=== PATIENT | male | born 1990 | race Caucasian/White ===

== ENCOUNTER 2022-04-09 13:55 | Emergency (ER) | payer OTHER ==
[~2022-04-09] VITALS: Ht 167.6 cm; Wt 79.4 kg
[2022-04-09 14:18] VITALS: BP 127/82
[2022-04-09] MEDS ORDERED: IBUPROFEN 600 MG TAB PO ONE (14:40)
[2022-04-09] MEDS ORDERED: IBUPROFEN 600 MG TAB ONE (17:07)
--- NOTE | 2022-04-09 17:15 | NUR ---
FLU, RHYS AND STREP SWABS COLLECTED AND WALKED TO LAB
--- NOTE | 2022-04-09 17:18 | NUR ---
31/M C/O SORE THROAT AND FATIGUE X4 DAYS. REPORTS RIGHT EAR PAIN AND HEADACHE TODAY, REPORTS TAKING ABX AT HOME WITH NO RELIEF.
[2022-04-09] MEDS ORDERED: IBUP-2213 PO (18:03)
[2022-04-09 18:08] VITALS: BP 106/50
--- NOTE | 2022-04-09 18:08 | NUR ---
Patient discharged with v/s stable. Written and verbal after care instructions ABOUT VIRAL ILLNESS given and explained. Patient alert, oriented and verbalized understanding of instructions. Ambulatory with steady gait. All questions addressed prior to discharge. ID band removed. Patient advised to follow up with PMD. Rx of IBUPROFEN given. Patient educated on indication of medication including possible reaction and side effects. Opportunity to ask questions provided and answered.
== END 2022-04-09 18:08 | disposition home or self-care (01) ==
LOC: MED 13:55
DX: J02.9 Acute pharyngitis, unspecified (principal); Z20.822 Contact with and (suspected) exposure to COVID-19; Z79.899 Other long term (current) drug therapy
CPT/HCPCS: 87081; 99283

== ENCOUNTER 2022-04-24 16:59 | Emergency (ER) | payer OTHER ==
[~2022-04-24] VITALS: Ht 170.2 cm; Wt 77.1 kg
[~2022-04-24 16:59] MED LIST: IBUP-2213 PO
[2022-04-24 17:01] VITALS: BP 127/83
--- NOTE | 2022-04-24 17:08 | NUR ---
Brisa parikh in [facility] - 04/24/22 at 1708 by [email or web address] PT AMB TO BED 9
--- NOTE | 2022-04-24 17:10 | NUR ---
BIB SELF C/O 07/20 SORE THROAT, COUGH X TODAY. PMH: DENIES
[2022-04-24] MEDS ORDERED: KETOROLAC 30 MG/ML VIAL IM ONE (17:25)
[2022-04-24] MEDS ORDERED: BENZ-300 PO (17:31)
[2022-04-24] MEDS ORDERED: PROM118S5 PO (17:31)
[2022-04-24] MEDS ORDERED: IBUP-2213 PO (17:31)
--- NOTE | 2022-04-24 17:41 | NUR ---
COVID RHYS, FLU SWABS DONE.
[2022-04-24 17:55] VITALS: BP 117/67
--- NOTE | 2022-04-24 17:55 | NUR ---
Patient discharged with v/s stable. Written and verbal after care instructions given and explained. Patient alert, oriented and verbalized understanding of instructions. Ambulatory with steady gait. All questions addressed prior to discharge. ID band removed. Patient advised to follow up with PMD. Rx of IBUPROFEN, PROMETHAZINE, CEPACOL SORE THROAT LOZENGE given. Patient educated on indication of medication including possible reaction and side effects. Opportunity to ask questions provided and answered.
== END 2022-04-24 17:55 | disposition home or self-care (01) ==
LOC: MED 16:59
DX: B34.9 Viral infection, unspecified (principal); Z20.822 Contact with and (suspected) exposure to COVID-19; R03.0 Elevated blood-pressure reading, without diagnosis of hypertension; F12.90 Cannabis use, unspecified, uncomplicated; Z79.899 Other long term (current) drug therapy; Z79.1 Long term (current) use of non-steroidal anti-inflammatories (NSAID)
CPT/HCPCS: 87426; 87804; 96372; 99283; J1885

== ENCOUNTER 2022-04-27 15:50 | Emergency (ER) | payer OTHER ==
[~2022-04-27] VITALS: Ht 165.1 cm; Wt 74.8 kg
[~2022-04-27 15:50] MED LIST changes: +BENZ-300 PO; +PROM118S5 PO
[2022-04-27 15:58] VITALS: BP 122/71
--- NOTE | 2022-04-27 16:02 | NUR ---
PT AMBULATED TO ER BED 3 WITH A STEADY GAIT.
--- NOTE | 2022-04-27 16:18 | NUR ---
31 Y/O MALE C/O COUGH, CONGESTION, SORE THROAT, AND BODY ACHES X3 DAYS. SPO2 IN TRIAGE 93% ON RA, PT PLACED ON SUPERVISOR BIT AND SHANK DEPARTMENT FOR REEVALUATION. DENIES FEVER/CHILLS. DENIES N/V/D. DENIES PMH NKA
[2022-04-27] MEDS ORDERED: ONDANSETRON 4 MG/2 ML VIAL IVP ONE (16:40)
[2022-04-27] MEDS ORDERED: NACL 0.9% 1,000 ML IV ONE (16:40)
[2022-04-27] MEDS ORDERED: KETOROLAC 30 MG/ML VIAL IM ONE (16:40)
[2022-04-27] MEDS ORDERED: KETOROLAC 15 MG/ML VIAL ONE (16:46)
--- NOTE | 2022-04-27 18:07 | NUR ---
PT TAKEN TO CT VIA W/C.
[2022-04-27 18:14] LABS: BASOPHILS % (AUTO) 0.2 % (0.0-2.0); HEMATOCRIT 40.4 % (36-52); HEMOGLOBIN 13.7 g/dL (12.0-18.0); LYMPHOCYTES # (AUTO) 1.3 K/uL (2.0-11.5); LYMPHOCYTES % (AUTO) 14.2 % (20.5-51.1); MEAN CORPUSCULAR HEMOGLOBIN 30 pg (27-31); MEAN CORPUSCULAR HGB CONC 34 g/dL (33-37); MEAN CORPUSCULAR VOLUME 89.3 fL (80-94); MONOCYTES # (AUTO) 0.8 K/uL (0.8-1.0); MONOCYTES % (AUTO) 8.1 % (1.7-9.3); NEUTROPHILS # (AUTO) 7.3 K/uL (1.8-7.7); NEUTROPHILS % (AUTO) 77.5 % (42.2-75.2); PLATELET COUNT (AUTO) 226 K/uL (140-450); RED BLOOD CELL COUNT(AUTO) 4.52 MIL/uL (4.20-6.10); RED CELL DISTRIBUTION WIDTH 13.6 % (11.6-13.7); WHITE BLOOD COUNT (AUTO) 9.4 K/uL (4.8-10.8)
--- NOTE | 2022-04-27 18:17 | NUR ---
PT TAKEN TO ER BED 3 VIA W/C.
[2022-04-27 18:38] LABS: ALBUMIN 3.2 g/dL (3.4-5.0); ANION GAP 9.6 (8-16); CARBON DIOXIDE 25.2 mmol/L (21-32); CREATININE 1.2 mg/dL (0.6-1.3); POTASSIUM 3.8 mmol/L (3.5-5.1); TOTAL BILIRUBIN 0.5 mg/dL (0.0-1.0)
--- NOTE | 2022-04-27 18:52 | NUR ---
PT IN BED, VISIBLE EQUAL RISE AND FALL OF CHEST, VSS, WILL CONTINUE TO MONITOR. PT STATES 05/19 PAIN HARI CROFT NOTIFIED.
[2022-04-27] MEDS ORDERED: DICYCLOMINE HCL LIQUID 20 MG, ALUMINUM HYD/MAG/SIMETHICONE 30 ML, LIDOCAINE VISCOUS 2% ... PO ONE ×3 (18:55)
--- NOTE | 2022-04-27 19:14 | NUR ---
GAVE REPORT TO ROSAS RAMIREZ. TRANSFER OF CARE AT THIS TIME.
[2022-04-27] MEDS ORDERED: BENZ-300 PO ×2 (19:25→23:07)
[2022-04-27] MEDS ORDERED: AMOX-1230 PO ×2 (19:25→23:07)
[2022-04-27] MEDS ORDERED: ONDA-188 SL ×2 (19:25→23:07)
[2022-04-27] MEDS ORDERED: IBUP-2213 PO ×2 (19:25→23:07)
[2022-04-27] MEDS ORDERED: ALUMINUM HYD/MAG/SIMETHICONE 30 ML UDC ONE (19:39)
[2022-04-27] MEDS ORDERED: DICYCLOMINE HCL LIQUID 10 MG/5 ML UDC ONE ×3 (19:39→19:56)
[2022-04-27 20:27] VITALS: BP 109/61
== END 2022-04-27 20:20 | disposition home or self-care (01) ==
LOC: MED 15:50
DX: B34.9 Viral infection, unspecified (principal); Z20.822 Contact with and (suspected) exposure to COVID-19; J18.9 Pneumonia, unspecified organism; R10.84 Generalized abdominal pain; R03.0 Elevated blood-pressure reading, without diagnosis of hypertension; Z79.899 Other long term (current) drug therapy; Z79.1 Long term (current) use of non-steroidal anti-inflammatories (NSAID); Z79.2 Long term (current) use of antibiotics
CPT/HCPCS: 36415; 71045; 74176; 80053; 81002; 83690; 85025; 87081; 87426; 96361; 96374; 99285; J1885; J2405; J7030

== ENCOUNTER 2022-05-08 21:23 | Emergency (ER) | payer OTHER ==
[~2022-05-08] VITALS: Ht 170.2 cm; Wt 78.5 kg
[~2022-05-08 21:23] MED LIST changes: +AMOX-1230 PO; +ONDA-188 SL
[2022-05-08 21:50] VITALS: BP 108/55
--- NOTE | 2022-05-08 23:15 | NUR ---
Patient ambulated to bed 1.
--- NOTE | 2022-05-09 00:05 | NUR ---
31 Y/O W C/O upper back pain x today. Patient reported, had Dx Pneumonia (one week ago), today had upper back pain when cough. PMHx: DENIES
[2022-05-09] MEDS ORDERED: KETOROLAC 30 MG/ML VIAL IM ONE (00:15)
--- NOTE | 2022-05-09 01:05 | NUR ---
PT MADE AWARE ON PENDING XRAY RESULTS
[2022-05-09] MEDS ORDERED: ROBAC PO (01:14)
[2022-05-09] MEDS ORDERED: NAPR-54 PO (01:14)
--- NOTE | 2022-05-09 01:30 | NUR ---
Dr. Syed explain results and treatment plans.
[2022-05-09 01:33] VITALS: BP 115/78
--- NOTE | 2022-05-09 01:33 | NUR ---
Patient discharged with v/s stable. Written and verbal after care instructions given and explained for Acute Back pain, adult. Patient alert, oriented and verbalized understanding of instructions. Ambulatory with steady gait. All questions addressed prior to discharge. ID band removed. Patient advised to follow up with PMD. Rx of Naproxen and Guaifenessin-codeine given. Patient educated on indication of medication including possible reaction and side effects. Opportunity to ask questions provided and answered.
== END 2022-05-09 01:33 | disposition home or self-care (01) ==
LOC: MED 21:23
DX: R05.9 Cough, unspecified (principal); M54.9 Dorsalgia, unspecified; Z79.899 Other long term (current) drug therapy; Z79.1 Long term (current) use of non-steroidal anti-inflammatories (NSAID); Z79.2 Long term (current) use of antibiotics
CPT/HCPCS: 71045; 96372; 99283; J1885; Q0092

== ENCOUNTER 2022-12-19 18:33 | Emergency (ER) | payer OTHER ==
[~2022-12-19] VITALS: Ht 170.2 cm; Wt 77.1 kg
[~2022-12-19 18:33] MED LIST changes: +NAPR-54 PO; +ROBAC PO
[2022-12-19 19:20] VITALS: BP 125/71
--- NOTE | 2022-12-19 19:23 | NUR ---
TO LOBBY A/W BED AMBULATORY
--- NOTE | 2022-12-19 21:10 | NUR ---
PT TO [facility]B
== END 2022-12-19 22:20 | disposition left against medical advice (07) ==
LOC: MED 18:33
DX: R07.0 Pain in throat (principal); Z53.21 Procedure and treatment not carried out due to patient leaving prior to being seen by health care provider

== ENCOUNTER 2023-06-06 07:40 | Emergency (ER) | payer OTHER ==
[~2023-06-06] VITALS: Ht 170.2 cm; Wt 76.7 kg
[2023-06-06 08:18] VITALS: BP 123/73; PULSE 78; RESP 20; TEMP 96.3; O2SAT 98
--- NOTE | 2023-06-06 08:47 | NUR ---
REPORT GIVEN TO MANAS PILLAI
[2023-06-06] MEDS ORDERED: KETOROLAC 30 MG/ML VIAL IVP ONE (09:15)
[2023-06-06 09:25] LABS: BASOPHILS # (AUTO) 0.1 K/uL (0.00-0.22); BASOPHILS % (AUTO) 0.6 % (0.0-2.0); EOSINOPHILS # (AUTO) 0.2 K/uL (0-0.4); EOSINOPHILS % (AUTO) 1.8 % (0.0-4.0); HEMATOCRIT 41.3 % (36-52); HEMOGLOBIN 14.2 g/dL (12.0-18.0); LYMPHOCYTES # (AUTO) 2.4 K/uL (2.0-11.5); LYMPHOCYTES % (AUTO) 19.4 % (20.5-51.1); MEAN CORPUSCULAR HEMOGLOBIN 30 pg (27-31); MEAN CORPUSCULAR HGB CONC 34 g/dL (33-37); MONOCYTES # (AUTO) 0.9 K/uL (0.8-1.0); NEUTROPHILS # (AUTO) 8.9 K/uL (1.8-7.7); NEUTROPHILS % (AUTO) 71.2 % (42.2-75.2); PLATELET COUNT (AUTO) 256 K/uL (140-450); RED CELL DISTRIBUTION WIDTH 13.4 % (11.6-13.7); WHITE BLOOD COUNT (AUTO) 12.5 K/uL (4.8-10.8)
[2023-06-06 09:26] LABS: APPEARANCE,URINE CLEAR (CLEAR); BILIRUBIN,URINE NEGATIVE (NEGATIVE); BLOOD, URINE TRACE-I (NEGATIVE); COLOR,URINE YELLOW (YELLOW); LEUKOCYTE ESTERASE ,URINE NEGATIVE (NEGATIVE); NITRITE, URINE NEGATIVE (NEGATIVE); UGLUCOSE NEGATIVE (NEGATIVE)
[2023-06-06 09:38] LABS: ANION GAP 12.8 (8-16); CARBON DIOXIDE 27.9 mmol/L (21-32); CREATININE 1.1 mg/dL (0.6-1.3); POTASSIUM 3.7 mmol/L (3.5-5.1); TOTAL BILIRUBIN 0.7 mg/dL (0.0-1.0)
--- NOTE | 2023-06-06 09:57 | NUR ---
PT TAKEN OFF UNIT TO CT-SCAN BY W/Anamaria
--- NOTE | 2023-06-06 10:09 | NUR ---
PT BACK TO BED [address]-SCAN.
--- NOTE | 2023-06-06 10:11 | NUR ---
MD INFORMED THAT THE PT'S HR HAS GONE DOWN INTO THE 40'S DURING HIS STAY. STATED, IF HR DECREASES AGAIN HE WOULD ORDER AN EKG.
--- NOTE | 2023-06-06 11:17 | NUR ---
PT RESTING WITHOUT DISTRESS. MONITORING STATUS.
[2023-06-06] MEDS ORDERED: metroNIDAZOLE 500 MG/NS PREMIX 100 ML IV ONE (12:10)
[2023-06-06] MEDS ORDERED: LEVOFLOXACIN 750 MG/D5W PREMIX 150 ML IV ONE (12:10)
--- NOTE | 2023-06-06 14:15 | NUR ---
1st contact with pt. in bed 11. Pt. with no acute distress. No SOB. No active c/o nausea or vomiting. States "abd. pain is better, I feel better." PT. give copy of CT scan clearly showing "APPENDICITIES." Pt. explained in mexican, as this loan underwriter is fully fluent in mexican, about what appendicitis entails, symptoms, and possible risk of if pt. is not operated on KI. Pt. verbalized understanding. Will continue to monitor.
[2023-06-06] MEDS ORDERED: METR-520 PO (14:27)
[2023-06-06] MEDS ORDERED: IBUP-2213 PO (14:27)
[2023-06-06] MEDS ORDERED: CIPR500T4 PO (14:27)
--- NOTE | 2023-06-06 15:49 | NUR ---
IV ANTIBIOTICS CONTINUE TO INFUSE.
--- NOTE | 2023-06-06 15:55 | NUR ---
Spoke to Richard Marie RN and stated that Levaquin started at 1414 and stopped at 1555. ED director aware.
[2023-06-06 16:18] VITALS: BP 113/69; PULSE 70; RESP 16; TEMP 97.3; O2SAT 99
--- NOTE | 2023-06-06 16:18 | NUR ---
Patient does not wish to proceed with medical care recommended by Dr. Baldwin. Patient given information related to possible complications, up to and including , which could occur as a result of leaving hospital at this time. Pt advised not to fly to [place]. Patient verbalizes understanding of risks involved leaving against medical advice. Patient has signed AMA form. Copies of DUPS and CT findings given. Rx were electronically sent to pharmacy of pt's choice for Cipro, Flagyl, and Motrin. Pt instructed to go to his nearest ER, if condtion worsens or to call 911.
== END 2023-06-06 16:18 | disposition left against medical advice (07) ==
LOC: MED 07:40
DX: K35.80 Unspecified acute appendicitis (principal); D72.829 Elevated white blood cell count, unspecified; E11.649 Type 2 diabetes mellitus with hypoglycemia without coma; I10 Essential (primary) hypertension; R41.0 Disorientation, unspecified; Z79.4 Long term (current) use of insulin; Z79.899 Other long term (current) drug therapy
CPT/HCPCS: 36415; 74177; 80053; 81001; 83690; 85025; 87491; 93005; 96365; 96366; 96367; 96375; 99285; J1885; J1956; J3490; Q9967

== ENCOUNTER 2023-06-08 15:39 | Inpatient (IN) | payer OTHER ==
[~2023-06-08] VITALS: Ht 170.2 cm; Wt 76.7 kg
[~2023-06-08 15:39] MED LIST changes: +CIPR500T4 PO; +METR-520 PO
[2023-06-08 15:46] VITALS: BP 148/81; PULSE 73; RESP 20; TEMP 97.2; O2SAT 99
[2023-06-08 16:11] VITALS: O2SAT 99
[2023-06-08 16:36] LABS: BASOPHILS % (AUTO) 0.5 % (0.0-2.0); EOSINOPHILS # (AUTO) 0.2 K/uL (0-0.4); EOSINOPHILS % (AUTO) 3.2 % (0.0-4.0); HEMATOCRIT 39.6 % (36-52); HEMOGLOBIN 13.6 g/dL (12.0-18.0); LYMPHOCYTES # (AUTO) 1.9 K/uL (2.0-11.5); LYMPHOCYTES % (AUTO) 36.4 % (20.5-51.1); MEAN CORPUSCULAR HEMOGLOBIN 30 pg (27-31); MEAN CORPUSCULAR HGB CONC 34 g/dL (33-37); MEAN CORPUSCULAR VOLUME 87.2 fL (80-94); MONOCYTES # (AUTO) 0.4 K/uL (0.8-1.0); MONOCYTES % (AUTO) 7.3 % (1.7-9.3); NEUTROPHILS # (AUTO) 2.8 K/uL (1.8-7.7); NEUTROPHILS % (AUTO) 52.6 % (42.2-75.2); PLATELET COUNT (AUTO) 303 K/uL (140-450); RED BLOOD CELL COUNT(AUTO) 4.54 MIL/uL (4.20-6.10); RED CELL DISTRIBUTION WIDTH 13.2 % (11.6-13.7); WHITE BLOOD COUNT (AUTO) 5.3 K/uL (4.8-10.8)
[2023-06-08] MEDS ORDERED: CIPR500T9 PO (16:43)
[2023-06-08] MEDS ORDERED: METR-435 PO (16:43)
[2023-06-08 16:50] LABS: ALBUMIN 3.7 g/dL (3.4-5.0); ANION GAP 11.8 (8-16); CALCIUM 8.5 mg/dL (8.5-10.1); CARBON DIOXIDE 27.4 mmol/L (21-32); CREATININE 1.1 mg/dL (0.6-1.3); POTASSIUM 3.2 mmol/L (3.5-5.1); TOTAL BILIRUBIN 0.4 mg/dL (0.0-1.0)
[2023-06-08 16:52] LABS: INR 1.05 (0.8-1.2); PARTIAL THROMBOPLASTIN TIME 33.3 secs (22-35.6)
[2023-06-08] MEDS ORDERED: PIPERACILLIN/TAZOBACTAM 3.375 GM in DEXTROSE 5% 50 ML IV ONE (18:45)
[2023-06-08] MEDS ORDERED: PIPERACILLIN/TAZOBACTAM 3.375 GM VIAL IV ONE ×2 (18:51→23:49)
[2023-06-08] MEDS ORDERED: IBUPROFEN 400 MG TAB PO PRN (19:00)
[2023-06-08] MEDS ORDERED: HYDROcodone/APAP 5/325 MG 1 TAB TAB PO PRN (19:00)
[2023-06-08] MEDS ORDERED: DEXT 5% /NACL 0.9% 1,000 ML IV SCH (19:00)
[2023-06-08] MEDS ORDERED: ONDANSETRON 4 MG/2 ML VIAL IVP PRN (19:00)
[2023-06-08] MEDS ORDERED: MORPHINE SULFATE 4 MG/ML SYR IVP PRN (19:00)
[2023-06-08] MEDS ORDERED: LORazepam 1 MG TAB PO PRN (19:00)
[2023-06-08] MEDS ORDERED: ACETAMINOPHEN 325 MG TAB PO PRN (19:00)
[2023-06-08] MEDS: POTASSIUM CHL 40 MEQ/ D5-1/2NS 1,000 ML IV SCH (21:47)
[2023-06-08 21:50] VITALS: PULSE 87; RESP 16; O2SAT 98
[2023-06-08] MEDS: PIPERACILLIN/TAZOBACTAM 3.375 GM in DEXTROSE 5% 50 ML IV SCH (23:56)
[2023-06-09] VITALS: BP 104/61; PULSE 74; RESP 18; TEMP 98.2; O2SAT 99
[2023-06-09 04:00] VITALS: BP 110/63; PULSE 68; RESP 18; TEMP 97.8; O2SAT 98
[2023-06-09] MEDS ORDERED: PIPERACILLIN/TAZOBACTAM 3.375 GM VIAL IV ONE (05:00)
[2023-06-09] MEDS: PIPERACILLIN/TAZOBACTAM 3.375 GM in DEXTROSE 5% 50 ML IV SCH ×3 (05:12→18:29)
[2023-06-09 06:21] LABS: BASOPHILS % (AUTO) 0.6 % (0.0-2.0); EOSINOPHILS # (AUTO) 0.1 K/uL (0-0.4); EOSINOPHILS % (AUTO) 2.7 % (0.0-4.0); HEMATOCRIT 41.2 % (36-52); HEMOGLOBIN 14.1 g/dL (12.0-18.0); LYMPHOCYTES # (AUTO) 1.6 K/uL (2.0-11.5); LYMPHOCYTES % (AUTO) 31.2 % (20.5-51.1); MEAN CORPUSCULAR HEMOGLOBIN 30 pg (27-31); MEAN CORPUSCULAR HGB CONC 34 g/dL (33-37); MEAN CORPUSCULAR VOLUME 87.5 fL (80-94); MONOCYTES # (AUTO) 0.3 K/uL (0.8-1.0); MONOCYTES % (AUTO) 6.2 % (1.7-9.3); NEUTROPHILS % (AUTO) 59.3 % (42.2-75.2); PLATELET COUNT (AUTO) 318 K/uL (140-450); RED BLOOD CELL COUNT(AUTO) 4.72 MIL/uL (4.20-6.10); RED CELL DISTRIBUTION WIDTH 13.2 % (11.6-13.7)
[2023-06-09 06:47] LABS: ALBUMIN 3.5 g/dL (3.4-5.0); ANION GAP 11.9 (8-16); CALCIUM 8.8 mg/dL (8.5-10.1); CARBON DIOXIDE 26.3 mmol/L (21-32); CREATININE 1.1 mg/dL (0.6-1.3); POTASSIUM 4.2 mmol/L (3.5-5.1); TOTAL BILIRUBIN 0.4 mg/dL (0.0-1.0); TOTAL PROTEIN, SERUM 7.9 g/dL (6.4-8.2)
[2023-06-09 08:00] VITALS: BP 111/68; PULSE 61; PULSE 65; RESP 19; TEMP 97.3; O2SAT 99
[2023-06-09] MEDS: DOCUSATE SODIUM 100 MG GELCAP PO SCH (09:08)
[2023-06-09] MEDS: POTASSIUM CHL 40 MEQ/ D5-1/2NS 1,000 ML IV SCH ×2 (11:11→20:00)
[2023-06-09 12:00] VITALS: BP 110/65; PULSE 55; PULSE 60; RESP 19; TEMP 97.5; O2SAT 98
[2023-06-09 16:00] VITALS: BP 108/57; PULSE 55; PULSE 56; RESP 19; TEMP 97.7; O2SAT 98
[2023-06-09 20:00] VITALS: BP 108/57; PULSE 50; PULSE 54; PULSE 58; RESP 18; TEMP 98.4; O2SAT 98
[2023-06-10] VITALS (8 sets, daily range): BP systolic 103–112; BP diastolic 42–65; PULSE 44–79; RESP 18–20; TEMP 97.4–97.6; O2SAT 95–99
[2023-06-10] MEDS: PIPERACILLIN/TAZOBACTAM 3.375 GM in DEXTROSE 5% 50 ML IV SCH ×4 (00:11→18:25)
[2023-06-10] MEDS: POTASSIUM CHL 40 MEQ/ D5-1/2NS 1,000 ML IV SCH ×3 (01:00→22:13)
[2023-06-10 06:32] LABS: BASOPHILS % (AUTO) 0.6 % (0.0-2.0); EOSINOPHILS # (AUTO) 0.3 K/uL (0-0.4); EOSINOPHILS % (AUTO) 5.4 % (0.0-4.0); HEMATOCRIT 40.8 % (36-52); HEMOGLOBIN 13.9 g/dL (12.0-18.0); LYMPHOCYTES # (AUTO) 2.2 K/uL (2.0-11.5); LYMPHOCYTES % (AUTO) 40.2 % (20.5-51.1); MEAN CORPUSCULAR HEMOGLOBIN 30 pg (27-31); MEAN CORPUSCULAR HGB CONC 34 g/dL (33-37); MEAN CORPUSCULAR VOLUME 88.5 fL (80-94); MONOCYTES # (AUTO) 0.5 K/uL (0.8-1.0); MONOCYTES % (AUTO) 8.9 % (1.7-9.3); NEUTROPHILS # (AUTO) 2.4 K/uL (1.8-7.7); NEUTROPHILS % (AUTO) 44.9 % (42.2-75.2); PLATELET COUNT (AUTO) 308 K/uL (140-450); RED BLOOD CELL COUNT(AUTO) 4.62 MIL/uL (4.20-6.10); WHITE BLOOD COUNT (AUTO) 5.4 K/uL (4.8-10.8)
[2023-06-10 06:41] LABS: ALBUMIN 3.4 g/dL (3.4-5.0); ANION GAP 9.9 (8-16); CALCIUM 8.6 mg/dL (8.5-10.1); CARBON DIOXIDE 26.1 mmol/L (21-32); CREATININE 1.2 mg/dL (0.6-1.3); TOTAL BILIRUBIN 0.4 mg/dL (0.0-1.0); TOTAL PROTEIN, SERUM 7.5 g/dL (6.4-8.2)
[2023-06-10] MEDS: DOCUSATE SODIUM 100 MG GELCAP PO SCH (08:24)
[2023-06-10] MEDS ORDERED: DEFEROXAMINE 500 MG VIAL ONE (19:00)
[2023-06-10] MEDS ORDERED: KETOROLAC 30 MG/ML VIAL ONE ×2 (19:00→19:45)
[2023-06-10] MEDS ORDERED: ONDANSETRON 4 MG/2 ML VIAL ONE ×2 (19:00→19:45)
[2023-06-10] MEDS ORDERED: PROPOFOL 200 MG/20 ML VIAL IV ONE ×2 (19:00→19:45)
[2023-06-10] MEDS ORDERED: SUCCINYLCHOLINE CHLORIDE 200 MG/10 ML VIAL IVP ONE ×2 (19:00→19:45)
[2023-06-10] MEDS ORDERED: ROCURONIUM 50 MG/5 ML VIAL IV ONE ×3 (19:00→20:31)
[2023-06-10] MEDS ORDERED: SUGAMMADEX SODIUM 200 MG/2 ML VIAL IV ONE ×2 (19:00→20:23)
[2023-06-10] MEDS ORDERED: fentaNYL citrate 0.05 MG/ML - 50mL vial IV ONE (19:00)
[2023-06-10] MEDS ORDERED: HYDROmorphone PFS 2 MG/ML SYR ONE ×2 (19:00→19:47)
[2023-06-10] MEDS ORDERED: BUPIVACAINE-MPF/EPI 0.25% 10 ML VIAL INJ ONE (19:17)
[2023-06-10] MEDS ORDERED: fentaNYL citrate 0.05 MG/ML VIAL ONE (19:38)
[2023-06-10] MEDS ORDERED: DEXAMETHASONE 4 MG/ML VIAL ONE (19:45)
[2023-06-11] VITALS: BP 119/62; PULSE 84; RESP 18; TEMP 98.1; O2SAT 96
[2023-06-11] MEDS: PIPERACILLIN/TAZOBACTAM 3.375 GM in DEXTROSE 5% 50 ML IV SCH ×4 (00:41→18:00)
[2023-06-11 04:00] VITALS: BP 109/61; PULSE 50; RESP 18; TEMP 97.7; O2SAT 96
[2023-06-11 06:56] LABS: BASOPHILS % (AUTO) 0.2 % (0.0-2.0); HEMATOCRIT 42.1 % (36-52); HEMOGLOBIN 14.6 g/dL (12.0-18.0); LYMPHOCYTES # (AUTO) 0.8 K/uL (2.0-11.5); LYMPHOCYTES % (AUTO) 8.6 % (20.5-51.1); MEAN CORPUSCULAR HEMOGLOBIN 30 pg (27-31); MEAN CORPUSCULAR HGB CONC 35 g/dL (33-37); MEAN CORPUSCULAR VOLUME 86.8 fL (80-94); MONOCYTES # (AUTO) 0.3 K/uL (0.8-1.0); MONOCYTES % (AUTO) 3.6 % (1.7-9.3); NEUTROPHILS # (AUTO) 8.1 K/uL (1.8-7.7); NEUTROPHILS % (AUTO) 87.6 % (42.2-75.2); PLATELET COUNT (AUTO) 364 K/uL (140-450); RED BLOOD CELL COUNT(AUTO) 4.85 MIL/uL (4.20-6.10); RED CELL DISTRIBUTION WIDTH 12.8 % (11.6-13.7); WHITE BLOOD COUNT (AUTO) 9.3 K/uL (4.8-10.8)
[2023-06-11 07:13] LABS: ALBUMIN 3.7 g/dL (3.4-5.0); ANION GAP 14.6 (8-16); CARBON DIOXIDE 26.9 mmol/L (21-32); CREATININE 1.1 mg/dL (0.6-1.3); POTASSIUM 4.5 mmol/L (3.5-5.1); TOTAL BILIRUBIN 0.5 mg/dL (0.0-1.0); TOTAL PROTEIN, SERUM 8.2 g/dL (6.4-8.2)
[2023-06-11 08:00] VITALS: BP 102/51; PULSE 52; PULSE 73; RESP 20; TEMP 98.4; O2SAT 99
[2023-06-11] MEDS: DOCUSATE SODIUM 100 MG GELCAP PO SCH (08:23)
[2023-06-11] MEDS: POTASSIUM CHL 40 MEQ/ D5-1/2NS 1,000 ML IV SCH (09:30)
[2023-06-11] MEDS ORDERED: ACET-9527 PO (09:37)
[2023-06-11 13:54] VITALS: BP 102/51; PULSE 52; RESP 20; TEMP 98.4
[2023-06-11 16:00] VITALS: BP 103/52; PULSE 50; RESP 20; TEMP 98; O2SAT 99
== END 2023-06-11 18:40 | disposition home or self-care (01) | DRG 224 ==
LOC: MED 15:39 → MMU 19:02 → MTU 20:14
PROVIDERS: ADMIT Student in an Organized Health Care Education/Training Program; ATTEND Student in an Organized Health Care Education/Training Program
PROC: 0DTJ4ZZ Resection of Appendix, Percutaneous Endoscopic Approach (ICD-10-PCS; principal; 2023-06-11)
PROC: 0DNJ4ZZ Release Appendix, Percutaneous Endoscopic Approach (ICD-10-PCS; 2023-06-11)
DX: K35.80 Unspecified acute appendicitis (principal); K42.9 Umbilical hernia without obstruction or gangrene
CPT/HCPCS: 36415; 80053; 82374; 83605; 83690; 85025; 85610; 85730; 86886; 86900; 86901; 87040; 87070; 87075; 87081; 87205; 88304; 96365; 99285; J0330; J0895; J1100; J1170; J1644; J1885; J2405; J2543; J2704; J3010; J3490; J7060; J7120; Q9967

== ENCOUNTER 2024-02-24 18:55 | Emergency (ER) | payer OTHER ==
[~2024-02-24] VITALS: Ht 170.2 cm; Wt 81.2 kg
[~2024-02-24 18:55] MED LIST changes: +ACET-9527 PO; -AMOX-1230 PO; -CIPR500T4 PO; -METR-520 PO; -NAPR-54 PO
[2024-02-24 19:55] VITALS: BP 130/86; PULSE 76; RESP 16; TEMP 98.6; O2SAT 99
[2024-02-24] MEDS: NACL 0.9% 1,000 ML IV SCH (23:17)
[2024-02-24 23:21] LABS: BASOPHILS % (AUTO) 0.3 % (0.0-2.0); EOSINOPHILS # (AUTO) 0.3 K/uL (0-0.4); EOSINOPHILS % (AUTO) 5.3 % (0.0-4.0); HEMATOCRIT 43.9 % (36-52); HEMOGLOBIN 15.5 g/dL (12.0-18.0); LYMPHOCYTES # (AUTO) 2.6 K/uL (2.0-11.5); LYMPHOCYTES % (AUTO) 43.9 % (20.5-51.1); MEAN CORPUSCULAR HEMOGLOBIN 31 pg (27-31); MEAN CORPUSCULAR HGB CONC 35 g/dL (33-37); MEAN CORPUSCULAR VOLUME 88.1 fL (80-94); MONOCYTES # (AUTO) 0.3 K/uL (0.8-1.0); MONOCYTES % (AUTO) 4.8 % (1.7-9.3); NEUTROPHILS # (AUTO) 2.8 K/uL (1.8-7.7); NEUTROPHILS % (AUTO) 45.7 % (42.2-75.2); PLATELET COUNT (AUTO) 297 K/uL (140-450); RED BLOOD CELL COUNT(AUTO) 4.98 MIL/uL (4.20-6.10); RED CELL DISTRIBUTION WIDTH 13.4 % (11.6-13.7)
[2024-02-24 23:30] LABS: APPEARANCE,URINE CLEAR (CLEAR); BILIRUBIN,URINE NEGATIVE (NEGATIVE); BLOOD, URINE NEGATIVE (NEGATIVE); COLOR,URINE YELLOW (YELLOW); LEUKOCYTE ESTERASE ,URINE NEGATIVE (NEGATIVE); NITRITE, URINE NEGATIVE (NEGATIVE); PH,URINE 7.5 (5.0-9.0); PROTEIN,URINE NEGATIVE (NEGATIVE); UGLUCOSE NEGATIVE (NEGATIVE); UROBILINOGEN,URINE 0.2 EU/dL (0.2 - 1)
[2024-02-24 23:33] LABS: ANION GAP 10.6 (8-16); CALCIUM 8.9 mg/dL (8.5-10.1); CARBON DIOXIDE 30.9 mmol/L (21-32); POTASSIUM 3.5 mmol/L (3.5-5.1)
[2024-02-24 23:37] LABS: TOTAL BILIRUBIN 0.3 mg/dL (0.0-1.0); TOTAL PROTEIN, SERUM 8.2 g/dL (6.4-8.2)
[2024-02-24] MEDS: KETOROLAC 30 MG/ML VIAL IVP ONE (23:51)
[2024-02-25 02:28] VITALS: BP 130/86; PULSE 76; RESP 16; TEMP 98.6; O2SAT 99
== END 2024-02-25 02:31 | disposition home or self-care (01) ==
LOC: MED 18:55
DX: R10.31 Right lower quadrant pain (principal); Z79.899 Other long term (current) drug therapy
CPT/HCPCS: 36415; 74018; 74176; 80048; 80076; 81003; 85025; 87040; 96361; 96374; 99285; J1885; J7030

== ENCOUNTER 2024-04-20 18:23 | Emergency (ER) | payer OTHER ==
[~2024-04-20] VITALS: Ht 170.2 cm; Wt 79.8 kg
[2024-04-20 18:46] VITALS: BP 120/57; PULSE 68; RESP 18; TEMP 98.2; O2SAT 99
[2024-04-20] MEDS ORDERED: CEPH-588 PO (19:16)
[2024-04-20] MEDS ORDERED: ACYC400T14 PO (19:16)
== END 2024-04-20 19:25 | disposition home or self-care (01) ==
LOC: MED 18:23
DX: K12.2 Cellulitis and abscess of mouth (principal); Z79.1 Long term (current) use of non-steroidal anti-inflammatories (NSAID); Z79.2 Long term (current) use of antibiotics; Z79.899 Other long term (current) drug therapy
CPT/HCPCS: 99283

== ENCOUNTER 2024-05-07 16:15 | Emergency (ER) | payer OTHER ==
[~2024-05-07] VITALS: Ht 170.2 cm; Wt 80.9 kg
[~2024-05-07 16:15] MED LIST changes: +ACYC400T14 PO; +CEPH-588 PO
[2024-05-07 16:21] VITALS: BP 120/69; PULSE 80; RESP 18; TEMP 97.4; O2SAT 97
[2024-05-07] MEDS ORDERED: CHLO473L1 PO (16:40)
[2024-05-07 16:43] VITALS: BP 120/69; PULSE 80; RESP 18; TEMP 97.4; O2SAT 97
== END 2024-05-07 16:42 | disposition home or self-care (01) ==
LOC: MED 16:15
DX: K12.1 Other forms of stomatitis (principal); Z79.899 Other long term (current) drug therapy
CPT/HCPCS: 99282

== ENCOUNTER 2024-05-12 18:23 | Emergency (ER) | payer OTHER ==
[~2024-05-12] VITALS: Ht 170.2 cm; Wt 76.2 kg
[~2024-05-12 18:23] MED LIST changes: +CHLO473L1 PO
[2024-05-12 18:50] VITALS: BP 118/67; PULSE 67; RESP 18; TEMP 98.4; O2SAT 98
[2024-05-12 21:35] VITALS: BP 121/69; PULSE 70; RESP 18; TEMP 98.2; O2SAT 98
[2024-05-12 21:58] LABS: FLU A ANTIGEN negative (NEGATIVE); FLU B ANTIGEN NEGATIVE (NEGATIVE)
== END 2024-05-12 22:25 | disposition home or self-care (01) ==
LOC: MED 18:23
DX: J02.9 Acute pharyngitis, unspecified (principal); Z20.822 Contact with and (suspected) exposure to COVID-19; Z90.49 Acquired absence of other specified parts of digestive tract; Z79.899 Other long term (current) drug therapy
CPT/HCPCS: 87081; 99283

== ENCOUNTER 2024-05-21 09:15 | Emergency (ER) | payer OTHER ==
[~2024-05-21] VITALS: Ht 170.2 cm; Wt 80.7 kg
[2024-05-21 09:21] VITALS: BP 118/70; PULSE 58; RESP 16; TEMP 98.1; O2SAT 99
[2024-05-21] MEDS: KETOROLAC 30 MG/ML VIAL IM ONE (10:47)
[2024-05-21] MEDS ORDERED: NAPR-337 PO (11:29)
[2024-05-21 11:51] VITALS: BP 119/69; PULSE 61; RESP 12; TEMP 98.1; O2SAT 98
== END 2024-05-21 11:52 | disposition home or self-care (01) ==
LOC: MED 09:15
DX: S30.0XXA Contusion of lower back and pelvis, initial encounter (principal); M53.3 Sacrococcygeal disorders, not elsewhere classified; Z79.899 Other long term (current) drug therapy; W18.39XA Other fall on same level, initial encounter; Y92.89 Other specified places as the place of occurrence of the external cause; Y93.89 Activity, other specified; Y99.8 Other external cause status
CPT/HCPCS: 72110; 72220; 96372; 99284; J1885; Q0092